=== PATIENT | female | born 1965 | race Caucasian/White ===

== ENCOUNTER 2017-02-27 13:11 | Emergency (ER) | payer OTHER, BC ==
[~2017-02-27] VITALS: Ht 162.6 cm; Wt 70.5 kg
[2017-02-27 13:16] VITALS: BP 140/81; PULSE 89; TEMP 99.2
[2017-02-27] MEDS ORDERED: FLEXERIL 1010 MG/TAB PO (15:08)
[2017-02-27] MEDS ORDERED: NORCO 325 MG-51 TAB PO (15:08)
== END 2017-02-27 15:14 | disposition home or self-care (01) ==
LOC: COL.ER 13:11
DX: S13.9XXA Sprain of joints and ligaments of unspecified parts of neck, initial encounter (principal); S40.012A Contusion of left shoulder, initial encounter; S60.222A Contusion of left hand, initial encounter; S80.02XA Contusion of left knee, initial encounter; V59.40XA Driver of pick-up truck or van injured in collision with unspecified motor vehicles in traffic accident, initial encounter; Y93.I9 Activity, other involving external motion; Z90.710 Acquired absence of both cervix and uterus; Z98.890 Other specified postprocedural states